=== PATIENT | female | born 1975 | race Caucasian/White ===

== ENCOUNTER 2017-06-20 20:24 | Emergency (ER) | payer BC, MEDICAID ==
[~2017-06-20] VITALS: Ht 170.2 cm; Wt 77.1 kg
[2017-06-20 20:38] VITALS: BP_SYST 127
[2017-06-20 21:30] VITALS: BP_SYST 127
== END 2017-06-20 21:30 | disposition home or self-care (01) ==
LOC: SED 20:24
DX: L50.9 Urticaria, unspecified (principal); R03.0 Elevated blood-pressure reading, without diagnosis of hypertension
CPT/HCPCS: 99283

== ENCOUNTER 2019-01-11 18:50 | Emergency (ER) | payer BC ==
[~2019-01-11] VITALS: Ht 170.2 cm; Wt 77.1 kg
[2019-01-11 18:58] VITALS: BP_SYST 124
[2019-01-11] MEDS ORDERED: IBUPROFEN 600 MG TABLET PO ONE (19:15)
[2019-01-12 04:55] VITALS: BP_SYST 124
== END 2019-01-12 04:55 | disposition home or self-care (01) ==
LOC: SED 18:50
DX: G57.61 Lesion of plantar nerve, right lower limb (principal); R03.0 Elevated blood-pressure reading, without diagnosis of hypertension
CPT/HCPCS: 36415; 84550-TC; 99283; 99284

== ENCOUNTER 2019-01-14 08:32 | Outpatient (CLI) | payer BC | END 2019-01-14 20:48 | disposition home or self-care (01) | LOC: SMI 08:32 | PROVIDERS: ATTEND Orthopaedic Surgery | DX: M25.571 Pain in right ankle and joints of right foot (principal) | CPT/HCPCS: 73721 ==

== ENCOUNTER 2023-06-30 19:34 | Emergency (ER) | payer BC ==
[~2023-06-30] VITALS: Ht 170.2 cm; Wt 81.6 kg
[2023-06-30 20:15] VITALS: BP_SYST 117; PULSE 86; RESP 17; TEMP 98; O2SAT 98
[2023-06-30] MEDS ORDERED: IBUP-1969 PO (20:31)
[2023-06-30 20:33] VITALS: BP_SYST 117; PULSE 86; RESP 17; TEMP 98; O2SAT 98
== END 2023-06-30 20:33 | disposition home or self-care (01) ==
LOC: SED 19:34
DX: M79.671 Pain in right foot (principal); W51.XXXA Accidental striking against or bumped into by another person, initial encounter; Y93.66 Activity, soccer; Y92.89 Other specified places as the place of occurrence of the external cause; Y99.8 Other external cause status
CPT/HCPCS: 99283

== ENCOUNTER 2024-01-18 18:34 | Emergency (ER) | payer BC ==
[~2024-01-18] VITALS: Ht 170.2 cm; Wt 83.9 kg
[~2024-01-18 18:34] MED LIST: IBUP-1969 PO
[2024-01-18 18:38] VITALS: BP_SYST 135; PULSE 97; RESP 17; TEMP 98.4; O2SAT 98
[2024-01-18] MEDS: IBUPROFEN 800 MG TABLET PO ONE (18:46)
[2024-01-18] MEDS ORDERED: LIDO1ADH22 TP (20:31)
[2024-01-18] MEDS ORDERED: IBUP-1971 PO (20:31)
[2024-01-18 22:00] VITALS: BP_SYST 120; PULSE 82; RESP 18; TEMP 98.2; O2SAT 96
== END 2024-01-18 22:00 | disposition home or self-care (01) ==
LOC: SED 18:34
DX: S32.2XXA Fracture of coccyx, initial encounter for closed fracture (principal); S30.0XXA Contusion of lower back and pelvis, initial encounter; Z79.899 Other long term (current) drug therapy; W18.39XA Other fall on same level, initial encounter; Y93.66 Activity, soccer; Y92.89 Other specified places as the place of occurrence of the external cause; Y99.8 Other external cause status
CPT/HCPCS: 72100; 72220; 99284